=== PATIENT | male | born 2000 | race Caucasian/White ===

== ENCOUNTER 2018-06-23 13:22 | Emergency (ER) | payer OTHER ==
--- NOTE | 2018-06-23 13:26 | ER Report ---
History and Physical Time Seen By MD: 13:26 HPI/ROS CHIEF COMPLAINT: Right thumb injury HISTORY OF PRESENT ILLNESS: Patient is a 17-year-old male here status post right thumb injury while snowboarding. Patient reportedly fell and got his thumb stuck in a hole causing the injury. Patient reports several episodes of dislocation of the thumb likely indicative of a ligamentous injury. Patient has intact sensation and capillary refill is less than 2 seconds. Denies further injury at this time. REVIEW OF SYSTEMS: Constitutional: No fever, no chills. Eyes: No discharge. ENT: No sore throat. Cardiovascular: No chest pain, no palpitations. Respiratory: No cough, no shortness of breath. Gastrointestinal: No abdominal pain, no vomiting. Genitourinary: No hematuria. Musculoskeletal: Right thumb injury Skin: No rashes. Neurological: Neurovascular exam intact Allergies: Coded Allergies: No Known Drug Allergies (Unverified , 06/23/18) Home Meds Active Scripts Tramadol Hcl (TRAMADOL HCL) 50 Mg Tablet, 50 MG PO Q6H PRN for PAIN, #12 TAB 0 Refills Prov:MANNY RAMIREZ DO 06/23/18 Constitutional Vital Sign - Last 24 Hours 06/23/18 06/23/18 06/23/18 06/23/18 13:26 13:28 14:18 14:22 Temp 98.4 Pulse 89 93 Resp 20 B/P (MAP) 144/78 (100) 136/79 (98) Pulse Ox 97 94 O2 Delivery Room Air Physical Exam General Appearance: The patient is alert, has no immediate need for airway protection and no signs of toxicity. No acute distress Neurological: Neurovascular exam intact Skin: Warm and dry, no rashes. Musculoskeletal: Right thumb tender on palpation at the base DIFFERENTIAL DIAGNOSIS: After history and physical exam differential diagnosis was considered for fracture, ligamentous injury, contusion, sprain Medical Decision Making EKG/Imaging Imaging Location: [facility] Patient: Marcelino Castillo : 2000 Visit/Account:[id number] Date of Sevice: 06/23/2018 3 Views right thumb INDICATION: Thumb pain. Injury. COMPARISON: None Available FINDINGS: 3 views of the right thumb are obtained. No acute fracture or dislocation is seen. Joint spaces are normal. No acute osseous abnormality. Soft tissues are no rmal. IMPRESSION: 1. Normal right thumb. ED Course/Re-evaluation ED Course Patient is a 17-year-old male here status post injury while snowboarding causing right thumb injury isolated. No fracture was identified on x-ray imaging. Patient reports several episodes of dislocation making ligamentous injury likely. Patient was placed on a thumb spica brace and advised to follow up closely with orthopedics. Return precautions provided Decision to Disposition Date: Jun 23, 2018 Decision to Disposition Time: 14:19 Depart Departure Latest Vital Signs Vital Signs Date Time Temp Pulse Resp B/P (MAP) Pulse Ox O2 Delivery O2 Flow Rate FiO2 06/23/18 14:22 93 94 06/23/18 14:18 136/79 (98) 06/23/18 13:28 98.4 20 Room Air Impression: Primary Impression: Thumb injury Condition: Improved Disposition: HOME OR SELF-CARE New Scripts Tramadol Hcl (TRAMADOL HCL) 50 Mg Tablet 50 MG PO Q6H PRN for PAIN, #12 TAB 0 Refills Prov: MANNY RAMIREZ DO 06/23/18 Patient Instructions: Musculoskeletal Pain (ED) Additional Instructions: Please keep the thumb spica splint in place for stability. No fracture was identified however there may be significant ligamentous or tendon injury to the joint which will need to be evaluated by orthopedics within 1 week. Please return immediately if you develop recurrent injury, worsening pain, numbness. MANNY RAMIREZ DO Jun 23, 2018 13:26
--- NOTE | 2018-06-23 14:10 | RADIOLOGY IMAGING REPORT ---
FACILITY: [facility] [place] PATIENT NAME: Marcelino Castillo : 2000 MR: [id number] V: [id number] EXAM DATE: ORDERING PHYSICIAN: MANNY RAMIREZ TECHNOLOGIST: Location: [facility] [place] Patient: Marcelino Castillo : 2000 Visit/Account:[id number] Date of Sevice: 06/23/2018 3 Views right thumb INDICATION: Thumb pain. Injury. COMPARISON: None Available FINDINGS: 3 views of the right thumb are obtained. No acute fracture or dislocation is seen. Joint spaces are n ormal. No acute osseous abnormality. Soft tissues are normal. IMPRESSION: 1. Normal right thumb. Report Dictated By: Ashvin Franks at 06/23/2018 2:04 PM Report E-Signed By: Ashvin Franks at 06/23/2018 2:07 PM WSN:[id number]
[2018-06-23 14:18] VITALS: BP 136/79
[2018-06-23] MEDS ORDERED: TRAM-420 PO (14:21)
== END 2018-06-23 14:30 | disposition home or self-care (01) ==
LOC: ER 13:31
DX: T14.90XA Injury, unspecified, initial encounter (principal); Y93.23 Activity, snow (alpine) (downhill) skiing, snowboarding, sledding, tobogganing and snow tubing
CPT/HCPCS: 99283